=== PATIENT | female | born 1960 | race Caucasian/White ===

== ENCOUNTER 2019-11-28 15:53 | Inpatient (IN) | payer MEDICAID ==
[~2019-11-28] VITALS: Ht 160 cm; Wt 43.1 kg
[2019-11-28 15:53] VITALS: BP_SYST 118
[2019-11-28 16:50] LABS: BASOPHILS # (AUTO) 0.1 K/uL (0.0-0.2); BASOPHILS % (AUTO) 0.4 % (0.0-2.0); EOSINOPHILS % (AUTO) 0.3 % (0.0-4.0); HEMATOCRIT 43.8 % (36-48); HEMOGLOBIN 14.7 g/dL (12.0-16.0); LYMPHOCYTES # (AUTO) 2.9 K/uL (1.0-5.5); LYMPHOCYTES % (AUTO) 21.9 % (20.5-51.5); MEAN CORPUSCULAR HEMOGLOBIN 31 pg (27-31); MEAN CORPUSCULAR HGB CONC 34 % (32-36); MEAN CORPUSCULAR VOLUME 91 fL (79.0-98.0); MONOCYTES # (AUTO) 0.7 K/uL (0.0-1.0); MONOCYTES % (AUTO) 5.6 % (1.7-9.3); NEUTROPHILS # (AUTO) 9.3 K/uL (1.8-7.7); NEUTROPHILS % (AUTO) 71.8 % (40.0-70.0); PLATELET COUNT (AUTO) 283 K/uL (130-430); RED CELL DISTRIBUTION WIDTH 13.5 % (9.0-15.0)
[2019-11-28 17:07] LABS: ALBUMIN 3.7 g/dL (3.4-4.8); TOTAL BILIRUBIN 0.8 mg/dL (0.0-1.0)
[2019-11-28 17:10] LABS: INR 1.1 (0.8-1.2); PROTHROMBIN TIME 10.8 SECS (9.5-12.5)
[2019-11-28 17:11] LABS: POTASSIUM 2.8 mmol/L (3.5-5.1)
[2019-11-28] MEDS ORDERED: KCL 40mEq in D5/0.45NS 1000 mL 1,000 ML IV ONE (17:45)
[2019-11-28] MEDS ORDERED: HYDROcodone/ACETAMIN 5-325 MG TAB (NORCO/ VICODIN) PO PRN (23:30)
[2019-11-28] MEDS ORDERED: ALBUTEROL SULFATE 0.083% 2.5 MG/3 ML VIAL.NEB INH PRN (23:30)
[2019-11-28] MEDS ORDERED: ACETAMINOPHEN 325 MG TABLET PO PRN (23:30)
[2019-11-28] MEDS ORDERED: POTASSIUM CHLORIDE 20 MEQ TAB.PRT.SR PO ONE (23:30)
[2019-11-29 00:28] VITALS: BP_SYST 100
[2019-11-29] MEDS ORDERED: KCL 20 mEq in 100 mL (PREMIX) 100 ML IV ONE (00:45)
[2019-11-29 00:54] VITALS: BP_SYST 147
[2019-11-29 01:15] VITALS: BP_SYST 148
[2019-11-29] MEDS: NACL 0.9% 1,000 ML IV SCH ×3 (02:21→21:00)
[2019-11-29 06:41] LABS: BASOPHILS # (AUTO) 0.1 K/uL (0.0-0.2); EOSINOPHILS # (AUTO) 0.1 K/uL (0.0-0.4); EOSINOPHILS % (AUTO) 1.3 % (0.0-4.0); HEMATOCRIT 39.5 % (36-48); HEMOGLOBIN 13.3 g/dL (12.0-16.0); LYMPHOCYTES # (AUTO) 2.9 K/uL (1.0-5.5); MEAN CORPUSCULAR HEMOGLOBIN 31 pg (27-31); MEAN CORPUSCULAR HGB CONC 34 % (32-36); MEAN CORPUSCULAR VOLUME 92 fL (79.0-98.0); MONOCYTES # (AUTO) 0.5 K/uL (0.0-1.0); NEUTROPHILS # (AUTO) 6.3 K/uL (1.8-7.7); NEUTROPHILS % (AUTO) 63.7 % (40.0-70.0); PLATELET COUNT (AUTO) 254 K/uL (130-430); RED BLOOD CELL COUNT(AUTO) 4.31 MIL/uL (4.2-6.2); RED CELL DISTRIBUTION WIDTH 13.5 % (9.0-15.0)
[2019-11-29 07:16] LABS: ALBUMIN 3.3 g/dL (3.4-4.8); CALCIUM 9.4 mg/dL (8.4-11.0); CREATININE 0.88 mg/dL (0.55-1.30); POTASSIUM 3.4 mmol/L (3.5-5.1); THYROID STIMULATING HORMONE 1.8 uIu/mL (0.36-3.74); TOTAL BILIRUBIN 0.8 mg/dL (0.0-1.0)
[2019-11-29 08:00] VITALS: BP_SYST 109
[2019-11-29] MEDS: BENZTROPINE MESYLATE 1 MG TABLET PO SCH ×4 (09:00→21:00)
[2019-11-29 20:00] VITALS: BP_SYST 114
[2019-11-30 02:20] VITALS: BP_SYST 108
[2019-11-30] MEDS: NACL 0.9% 1,000 ML IV SCH (05:19)
[2019-11-30 08:00] VITALS: BP_SYST 102
[2019-11-30 08:13] LABS: CANCER AG, 125 4.2 U/mL (0.0-38.1)
[2019-11-30] MEDS: BENZTROPINE MESYLATE 1 MG TABLET PO SCH ×3 (09:00→20:42)
[2019-11-30] MEDS ORDERED: MILK OF MAGNESIA 30 ML UDC PO ONE (09:00)
[2019-11-30 09:44] LABS: CALCIUM 8.6 mg/dL (8.4-11.0); CREATININE 0.71 mg/dL (0.55-1.30)
[2019-11-30 09:50] LABS: ALBUMIN 3.1 g/dL (3.4-4.8)
[2019-11-30 09:59] LABS: POTASSIUM 2.7 mmol/L (3.5-5.1)
[2019-11-30 10:00] LABS: BASOPHILS # (AUTO) 0.1 K/uL (0.0-0.2); BASOPHILS % (AUTO) 1.1 % (0.0-2.0); EOSINOPHILS # (AUTO) 0.1 K/uL (0.0-0.4); EOSINOPHILS % (AUTO) 0.7 % (0.0-4.0); HEMATOCRIT 39.3 % (36-48); HEMOGLOBIN 13.2 g/dL (12.0-16.0); LYMPHOCYTES # (AUTO) 3.1 K/uL (1.0-5.5); LYMPHOCYTES % (AUTO) 34.5 % (20.5-51.5); MEAN CORPUSCULAR HEMOGLOBIN 31 pg (27-31); MEAN CORPUSCULAR HGB CONC 34 % (32-36); MEAN CORPUSCULAR VOLUME 91 fL (79.0-98.0); MONOCYTES # (AUTO) 0.5 K/uL (0.0-1.0); NEUTROPHILS # (AUTO) 5.3 K/uL (1.8-7.7); NEUTROPHILS % (AUTO) 58.7 % (40.0-70.0); PLATELET COUNT (AUTO) 237 K/uL (130-430); RED CELL DISTRIBUTION WIDTH 13.5 % (9.0-15.0); WHITE BLOOD COUNT (AUTO) 9.1 K/uL (4.8-10.8)
[2019-11-30] MEDS ORDERED: POTASSIUM CHLORIDE 40 MEQ in NS 250 ML IV ONE (10:30)
[2019-11-30] MEDS ORDERED: SODIUM PHOSPHATE,MONO-DIBASIC 133 ML ENEMA RC ONE (11:15)
[2019-11-30 12:30] VITALS: BP_SYST 123
[2019-11-30] MEDS ORDERED: BISACODYL 10 MG/SUPPOSITORY RC ONE ×2 (16:00→21:00)
[2019-11-30 16:30] VITALS: BP_SYST 117
[2019-11-30] MEDS: POLYETHYLENE GLYCOL 3350, 17 GM/ POWD.PACK PO ONE (17:00)
[2019-11-30 19:00] VITALS: BP_SYST 108
[2019-11-30 20:23] VITALS: BP_SYST 108
[2019-12-01 01:17] VITALS: BP_SYST 128
[2019-12-01] MEDS: NACL 0.9% 1,000 ML IV SCH ×2 (03:18→12:11)
[2019-12-01 08:00] VITALS: BP_SYST 110
[2019-12-01] MEDS: POLYETHYLENE GLYCOL 3350, 17 GM/ POWD.PACK PO SCH (09:00)
[2019-12-01] MEDS: BENZTROPINE MESYLATE 1 MG TABLET PO SCH ×3 (09:00→21:00)
[2019-12-01 12:20] VITALS: BP_SYST 119
[2019-12-01 12:32] LABS: CALCIUM 8.8 mg/dL (8.4-11.0); CREATININE 0.64 mg/dL (0.55-1.30); POTASSIUM 3.1 mmol/L (3.5-5.1)
[2019-12-01] MEDS ORDERED: DEXTROSE 50% JECT 50 ML DISP.SYRIN ONE (13:00)
[2019-12-01] MEDS ORDERED: D5W 1,000 ML IV PRN (13:14)
[2019-12-01] MEDS ORDERED: POTASSIUM CHLORIDE 40 MEQ in D5W 250 ML IV ONE (13:15)
[2019-12-01] MEDS ORDERED: DEXTROSE 50% JECT 50 ML DISP.SYRIN IVP PRN (13:15)
[2019-12-01] MEDS ORDERED: GLUCOSE 15 GM GEL (in 37.5 GM TUBE) PO PRN (13:15)
[2019-12-01] MEDS: D5/0.45 NS 1,000 ML IV SCH (13:55)
[2019-12-01] MEDS ORDERED: POTASSIUM CHLORIDE 20 MEQ TAB.PRT.SR PO ONE (14:00)
[2019-12-01 16:10] VITALS: BP_SYST 110
[2019-12-01 19:00] VITALS: BP_SYST 114
[2019-12-01 20:00] VITALS: BP_SYST 114
[2019-12-02 00:32] VITALS: BP_SYST 139
[2019-12-02] MEDS: D5/0.45 NS 1,000 ML IV SCH ×3 (01:38→19:15)
[2019-12-02 08:00] LABS: ALBUMIN 2.5 g/dL (3.4-4.8); CALCIUM 8.3 mg/dL (8.4-11.0); CREATININE 0.5 mg/dL (0.55-1.30); TOTAL BILIRUBIN 0.5 mg/dL (0.0-1.0)
[2019-12-02 08:30] LABS: POTASSIUM 2.3 mmol/L (3.5-5.1)
[2019-12-02 08:32] VITALS: BP_SYST 103
[2019-12-02] MEDS: BENZTROPINE MESYLATE 1 MG TABLET PO SCH ×3 (09:00→20:32)
[2019-12-02] MEDS: POLYETHYLENE GLYCOL 3350, 17 GM/ POWD.PACK PO SCH (09:00)
[2019-12-02] MEDS ORDERED: COMMUNICATION ORDER XX ONE (09:00)
[2019-12-02] MEDS ORDERED: POTASSIUM CHLORIDE 60 MEQ in NS 500 ML IV ONE (09:30)
[2019-12-02 12:06] LABS: CA 27.29 19.2 U/mL (0.0-38.6); IMMUNOGLOBULIN G, SERUM 915 mg/dL (586-1602); IMMUNOGLOBULIN M, SERUM 100 mg/dL (26-217)
[2019-12-02 12:42] VITALS: BP_SYST 103
[2019-12-02 12:47] VITALS: BP_SYST 113
[2019-12-02 14:06] LABS: KAPPA & LAMBDA LT CHAIN RATIO 1.18 (0.26-1.65)
[2019-12-02 16:30] VITALS: BP_SYST 107
[2019-12-02 20:00] VITALS: BP_SYST 109
[2019-12-03] VITALS: BP_SYST 106
[2019-12-03] MEDS: D5/0.45 NS 1,000 ML IV SCH ×2 (01:02→09:23)
[2019-12-03 03:58] LABS: AFP, TUMOR MARKER 1.9 ng/mL (0.0-8.3); CEA 1.3 ng/mL (0.0-4.7)
[2019-12-03 06:58] LABS: ALBUMIN 2.5 g/dL (3.4-4.8); C-REACTIVE PROTEIN QUANT 1.2 mg/dL (0-0.5); CALCIUM 8.3 mg/dL (8.4-11.0); CREATININE 0.59 mg/dL (0.55-1.30); TOTAL BILIRUBIN 0.6 mg/dL (0.0-1.0)
[2019-12-03 07:23] LABS: POTASSIUM 2.7 mmol/L (3.5-5.1)
[2019-12-03 07:50] VITALS: BP_SYST 118
[2019-12-03] MEDS: POTASSIUM CHLORIDE 40 MEQ in NS 250 ML IV SCH ×2 (08:24→12:44)
[2019-12-03] MEDS: MEGESTROL ACETATE 400 MG/10 ML UDC PO SCH ×2 (09:00→20:51)
[2019-12-03] MEDS: BENZTROPINE MESYLATE 1 MG TABLET PO SCH ×3 (09:00→20:51)
[2019-12-03] MEDS: POLYETHYLENE GLYCOL 3350, 17 GM/ POWD.PACK PO SCH (09:00)
[2019-12-03 12:00] VITALS: BP_SYST 114
[2019-12-03 16:51] VITALS: BP_SYST 130
[2019-12-03 20:00] VITALS: BP_SYST 125
[2019-12-04] VITALS: BP_SYST 126
[2019-12-04] MEDS: D5/0.45 NS 1,000 ML IV SCH ×3 (01:15→17:24)
[2019-12-04 07:46] LABS: A/G RATIO 1.3 (0.7-1.7); ALBUMIN 3.2 g/dL (2.9-4.4); ALPHA-1-GLOBULIN 0.2 g/dL (0.0-0.4); ALPHA-2-GLOBULIN 0.6 g/dL (0.4-1.0); BETA GLOBULIN 0.8 g/dL (0.7-1.3); GAMMA GLOBULIN 0.9 g/dL (0.4-1.8); GLOBULIN, TOTAL 2.5 g/dL (2.2-3.9); M-SPIKE Not Observed g/dL (Not Observed)
[2019-12-04 08:00] VITALS: BP_SYST 105
[2019-12-04 08:05] LABS: CALCIUM 9.1 mg/dL (8.4-11.0); CREATININE 0.52 mg/dL (0.55-1.30); PHOSPHORUS 2.2 mg/dL (2.7-4.5); POTASSIUM 3.8 mmol/L (3.5-5.1)
[2019-12-04] MEDS: MEGESTROL ACETATE 400 MG/10 ML UDC PO SCH ×2 (09:00→21:00)
[2019-12-04] MEDS: BENZTROPINE MESYLATE 1 MG TABLET PO SCH ×3 (09:00→21:00)
[2019-12-04] MEDS: POLYETHYLENE GLYCOL 3350, 17 GM/ POWD.PACK PO SCH (09:00)
[2019-12-04 12:25] VITALS: BP_SYST 115
[2019-12-04 16:23] VITALS: BP_SYST 121
[2019-12-05 00:57] VITALS: BP_SYST 121
[2019-12-05] MEDS: D5/0.45 NS 1,000 ML IV SCH ×3 (02:55→23:31)
[2019-12-05 08:00] VITALS: BP_SYST 112
[2019-12-05] MEDS: BENZTROPINE MESYLATE 1 MG TABLET PO SCH ×3 (09:00→20:57)
[2019-12-05] MEDS: MEGESTROL ACETATE 400 MG/10 ML UDC PO SCH ×2 (09:00→20:57)
[2019-12-05] MEDS: POLYETHYLENE GLYCOL 3350, 17 GM/ POWD.PACK PO SCH (09:00)
[2019-12-05 12:25] VITALS: BP_SYST 112
[2019-12-05 15:00] VITALS: BP_SYST 112
[2019-12-05 16:25] VITALS: BP_SYST 121
[2019-12-05 20:00] VITALS: BP_SYST 127
[2019-12-06 01:37] VITALS: BP_SYST 133
[2019-12-06 06:32] LABS: CALCIUM 8.7 mg/dL (8.4-11.0); CREATININE 0.55 mg/dL (0.55-1.30)
[2019-12-06 07:48] VITALS: BP_SYST 125
[2019-12-06 07:49] LABS: POTASSIUM 2.6 mmol/L (3.5-5.1)
[2019-12-06] MEDS: BENZTROPINE MESYLATE 1 MG TABLET PO SCH ×3 (08:53→21:00)
[2019-12-06] MEDS: MEGESTROL ACETATE 400 MG/10 ML UDC PO SCH ×2 (08:53→21:00)
[2019-12-06] MEDS: POLYETHYLENE GLYCOL 3350, 17 GM/ POWD.PACK PO SCH (08:54)
[2019-12-06] MEDS: ENOXAPARIN SODIUM 30 MG/0.3 ML SYRINGE SUBCUT SCH (09:00)
[2019-12-06] MEDS: POTASSIUM CHLORIDE 40 MEQ in NS 250 ML IV SCH ×2 (09:04→16:24)
[2019-12-06] MEDS: D5/0.45 NS 1,000 ML IV SCH (11:05)
[2019-12-06 12:45] VITALS: BP_SYST 128
[2019-12-06 16:42] VITALS: BP_SYST 125
[2019-12-06 20:00] VITALS: BP_SYST 115
[2019-12-07 01:31] VITALS: BP_SYST 117
[2019-12-07] MEDS: D5/0.45 NS 1,000 ML IV SCH ×3 (05:33→21:20)
[2019-12-07 08:32] VITALS: BP_SYST 116
[2019-12-07] MEDS: MEGESTROL ACETATE 400 MG/10 ML UDC PO SCH ×2 (09:00→21:00)
[2019-12-07] MEDS: POLYETHYLENE GLYCOL 3350, 17 GM/ POWD.PACK PO SCH (09:00)
[2019-12-07] MEDS: ENOXAPARIN SODIUM 30 MG/0.3 ML SYRINGE SUBCUT SCH (09:00)
[2019-12-07] MEDS: BENZTROPINE MESYLATE 1 MG TABLET PO SCH ×3 (09:00→21:00)
[2019-12-07 12:56] VITALS: BP_SYST 126
[2019-12-07 17:19] VITALS: BP_SYST 122
[2019-12-07 20:00] VITALS: BP_SYST 126
[2019-12-08 00:50] VITALS: BP_SYST 121
[2019-12-08] MEDS: D5/0.45 NS 1,000 ML IV SCH ×2 (06:04→14:56)
[2019-12-08] MEDS ORDERED: COMMUNICATION ORDER XX ONE (06:15)
[2019-12-08 08:00] VITALS: BP_SYST 106
[2019-12-08] MEDS: POLYETHYLENE GLYCOL 3350, 17 GM/ POWD.PACK PO SCH (08:48)
[2019-12-08] MEDS: ENOXAPARIN SODIUM 30 MG/0.3 ML SYRINGE SUBCUT SCH (08:48)
[2019-12-08] MEDS: MEGESTROL ACETATE 400 MG/10 ML UDC PO SCH ×2 (08:48→21:00)
[2019-12-08 08:52] LABS: CALCIUM 8.4 mg/dL (8.4-11.0); CHLORIDE 104 mmol/L (98-107); CREATININE 0.56 mg/dL (0.55-1.30); GLUCOSE 126 mg/dL (70-99); POTASSIUM 3.7 mmol/L (3.5-5.1); SODIUM SERUM 138 mmol/L (136-145); UREA NITROGEN, BLOOD 10 mg/dL (8-21)
[2019-12-08 08:55] LABS: GFR AFRICAN AMERICAN 143 mL/min (>90)
[2019-12-08 09:00] LABS: ANION GAP < 3 (5-15)
[2019-12-08 12:37] VITALS: BP_SYST 137
[2019-12-08 17:09] VITALS: BP_SYST 120
[2019-12-08 20:00] VITALS: BP_SYST 137
[2019-12-08 22:17] VITALS: BP_SYST 137
[2019-12-09 00:24] VITALS: BP_SYST 143
== END 2019-12-09 00:35 | DRG 425 ==
LOC: SED 15:53 → STU 21:29
PROVIDERS: ADMIT Internal Medicine Hospice and Palliative Medicine; ATTEND Internal Medicine Hospice and Palliative Medicine
DX: E87.6 Hypokalemia (principal); E43 Unspecified severe protein-calorie malnutrition; R65.10 Systemic inflammatory response syndrome (SIRS) of non-infectious origin without acute organ dysfunction; F32.3 Major depressive disorder, single episode, severe with psychotic features; M35.00 Sjogren syndrome, unspecified; R13.10 Dysphagia, unspecified; I45.81 Long QT syndrome; R62.7 Adult failure to thrive; I10 Essential (primary) hypertension; E78.5 Hyperlipidemia, unspecified; K56.41 Fecal impaction; E16.2 Hypoglycemia, unspecified; R00.0 Tachycardia, unspecified; R63.4 Abnormal weight loss; R33.9 Retention of urine, unspecified; Z91.81 History of falling; Z68.1 Body mass index [BMI] 19.9 or less, adult
CPT/HCPCS: 36415; 71045; 74018; 80048; 80053; 82105; 82378; 82784; 82803-TC; 82962; 83605; 83735-TC; 83880; 84100-TC; 84155; 84165; 84443-TC; 84484; 85025; 85610-TC; 85651-TC; 85730-TC; 86038; 86140; 86300; 86301; 86304; 87081; 93005; 93306; 96360; 97110-GP; 97116-GP; 97530-GP; 99285; G0378; J1650; J3480; J7030; J7040; J7050; J7060

== ENCOUNTER 2019-12-13 15:09 | Emergency (ER) | payer MEDICAID ==
[~2019-12-13] VITALS: Ht 165.1 cm; Wt 45.4 kg
[2019-12-13 15:09] VITALS: BP_SYST 116
[2019-12-13] MEDS ORDERED: NACL 0.9% 1,000 ML IV ONE (15:45)
[2019-12-13 16:36] LABS: BASOPHILS # (AUTO) 0.1 K/uL (0.0-0.2); EOSINOPHILS # (AUTO) 0.1 K/uL (0.0-0.4); EOSINOPHILS % (AUTO) 0.8 % (0.0-4.0); HEMATOCRIT 35.4 % (36-48); HEMOGLOBIN 11.6 g/dL (12.0-16.0); LYMPHOCYTES # (AUTO) 2.9 K/uL (1.0-5.5); LYMPHOCYTES % (AUTO) 32.4 % (20.5-51.5); MEAN CORPUSCULAR HEMOGLOBIN 30 pg (27-31); MEAN CORPUSCULAR HGB CONC 33 % (32-36); MEAN CORPUSCULAR VOLUME 91 fL (79.0-98.0); MONOCYTES # (AUTO) 0.5 K/uL (0.0-1.0); MONOCYTES % (AUTO) 5.4 % (1.7-9.3); NEUTROPHILS # (AUTO) 5.4 K/uL (1.8-7.7); NEUTROPHILS % (AUTO) 60.4 % (40.0-70.0); PLATELET COUNT (AUTO) 283 K/uL (130-430); RED CELL DISTRIBUTION WIDTH 13.6 % (9.0-15.0); WHITE BLOOD COUNT (AUTO) 8.9 K/uL (4.8-10.8)
[2019-12-13 16:54] LABS: CALCIUM 8.9 mg/dL (8.4-11.0); CREATININE 0.73 mg/dL (0.55-1.30); POTASSIUM 3.7 mmol/L (3.5-5.1)
[2019-12-13 16:57] LABS: PROTHROMBIN TIME 10.5 SECS (9.5-12.5)
[2019-12-13 16:59] LABS: ALBUMIN 2.9 g/dL (3.4-4.8); TOTAL BILIRUBIN 0.6 mg/dL (0.0-1.0)
[2019-12-13 18:01] VITALS: BP_SYST 116
== END 2019-12-13 18:00 | disposition home or self-care (01) ==
LOC: SED 15:09
DX: K14.6 Glossodynia (principal); E16.2 Hypoglycemia, unspecified
CPT/HCPCS: 36415; 71045; 80053; 83605; 84484; 85025; 85610; 85730; 87040; 93005; 99285; J7030